=== PATIENT | male | born 1950 ===

== ENCOUNTER 2023-01-18 15:54 | Inpatient (IN) | payer BC, SELFPAY ==
[2023-01-18 18:00] VITALS: BP 140/66; PULSE 87; RESP 18; TEMP 36.7; O2SAT 96
--- NOTE | 2023-01-18 19:15 | PC.NURSE ---
Patient arrived via stretcher. He was transferred to HM/ED from [facility]. Pt is 72 y.o. male who was living in the assisted living facility. Past medical Hx of Dementia, Schizophrenia, Hyperlipidemia, prior alcohol D/o, Bi-polar D/o COPD. He thinks he has a hole in his mouth leaking slime and spits saliva to the bucket. Pt appears calm. Oriented to person, knows the month but not the day of the week or the year. He knows he is in hospital but didn't know the town. VS: 140/66-87-18, T 98.1, O2sat 96% on RA. No SOB or respiratory distress noted. Denies pain. Ambulates with steady gait. Skin check completed and wnl. Patient's daughter Cullen Andre aware of pt's transfer [place] [facility] oriented to the unit. Adjusting to the new place well.
--- NOTE | 2023-01-18 20:47 | HO.PM.IMCN ---
History of Present Illness Data of Consult Service Date: 01/18/23 Requesting physician: Arnaldo Zhao Primary Care Provider: Unknown Physician HPI Reason for consult: medical H&P 72-year-old male history of unspecified dementia, schizophrenia, hyperlipidemia, prior alcohol use disorder, bipolar disorder admitted to Psychiatry from [facility] ED with consult placed to hospitalist service for medical H and P. His only complaint is that ?my mouth is leaking slime?. He is alert and oriented to self and knows he is in the hospital but does not know the name of the hospital. He disoriented to time. He is not much of a historian and does not provide much additional history. While in [facility], vital signs stable. Head CT negative for any acute intracranial abnormality. Hematology studies unremarkable. Renal function normal, electrolyte levels normal. Urine tox screen negative. Urinalysis negative. Review of Systems Review of Systems: Yes all other systems are reviewed and are negative [facility] Medical History Alcohol use disorder in remission Bipolar disorder COPD (chronic obstructive pulmonary disease) Dementia Schizophrenia Social History Advance Directives: No Advance Directives Information Provided: No Meds Allergies Allergy/AdvReac Type Severity Reaction Status Date / Time No Known Allergies Allergy Verified 01/18/23 15:04 Active Medications: Current Medications Acetaminophen (Acetaminophen 325 Mg Tablet) 650 mg PO Q6H PRN PRN Reason: Headache/Pain Mild Scale (1-3) Al Hydroxide/Mg Hydroxide (Magnesium Hydrox/Alum Hydrox 30 Ml Oral.Susp) 30 ml PO Q6H PRN PRN Reason: Heartburn/Nausea Albuterol Sulfate (Albuterol Sulfate 90 Mcg 8 Gm Inhaler) 1 puff INHALE RQ4H PRN PRN Reason: wheeze Atorvastatin Calcium (Atorvastatin Calcium 40 Mg Tablet) 40 mg PO BEDTIME JESSI Donepezil HCl (Donepezil Hcl 10 Mg Tablet) 10 mg PO BEDTIME JESSI Fluticasone/Vilanterol (Fluticasone/Vilanterol 100/25 Blst.W.Dev) 1 puff INHALE RDAILY JESSI Hydroxyzine HCl (Hydroxyzine Hcl 25 Mg Tablet) 25 mg PO Q6H PRN PRN Reason: Anxiety Lamotrigine (Lamotrigine 100 Mg Tablet) 100 mg PO BID JESSI Magnesium Hydroxide (Milk Of Magnesia 30 Ml Oral.Susp) 30 ml PO DAILY PRN PRN Reason: Constipation Quetiapine Fumarate (Quetiapine Fumarate 25 Mg Tablet) 75 mg PO BID JESSI Trazodone HCl (Trazodone Hcl 50 Mg Tablet) 50 mg PO BEDTIME MRX1 PRN PRN Reason: Insomnia Home Medications Medication Instructions Recorded Confirmed Last Taken Type albuterol sulfate 90 mcg/actuation 90 puff inhalation 6XD PRN COPD 01/18/23 01/18/23 Unknown History aerosol inhaler atorvastatin 40 mg tablet 40 mg PO DAILY 01/18/23 01/18/23 Unknown History donepezil 10 mg tablet 10 mg PO DAILY 01/18/23 01/18/23 Unknown History fluticasone 100 mcg-salmeterol 50 1 ea inhalation BID 01/18/23 01/18/23 Unknown History mcg/dose blistr powdr for inhalation (Advair Diskus) lamotrigine 100 mg tablet 100 mg PO BID 01/18/23 01/18/23 Unknown History quetiapine 150 mg tablet,extended See Rx Instructions .Route .COMPLEX 01/18/23 01/18/23 Unknown History release 24 hr Physical Exam Vital Signs and Narrative: Vital Signs: Last Vital Signs Temp 98.1 F 01/18/23 18:00 Pulse 87 01/18/23 18:00 Resp 18 01/18/23 18:00 BP 140/66 H 01/18/23 18:00 Pulse Ox 96 01/18/23 18:00 O2 Del Method Room Air 01/18/23 18:00 Constitutional - Awake and Alert, No apparent distress Eyes - PERRLA, EOMI Cardiovascular - S1S2, RRR, No edema Respiratory - Normal lung expansion, Normal respiratory effort, No respiratory distress, CTA bilaterally Gastrointestinal - NT / ND; +BS; No rebound or guarding Extremities - no calf tenderness bilaterally, no swelling Musculoskeletal - Normal inspection, normal ROM Skin - Warm/Dry Neurological - Alert & oriented x2, CN II-XII in tact, 5/5 strength BUE and BLE Psychological - Appropriate affect Assessment and Plan (1) Routine medical exam: Status: Acute Plan 72-year-old male history of unspecified dementia, schizophrenia, hyperlipidemia, prior alcohol use disorder, bipolar disorder admitted to Psychiatry from [facility] ED with consult placed to hospitalist service for medical H and P. #Mood disorder/psychosis -plan per psychiatry #COPD -no acute exacerbation -continue home maintenance inhalers, albuterol p.r.n. # hyperlipidemia -continue statin # unspecified dementia -continue donepezil Thank you for allowing me to participate in this consult. Signing off at this time. Please do not hesitate to call for further questions. Time Spent With Patient Time: Total time managing care of this patient today ____ minutes.
[2023-01-18] MEDS: Atorvastatin Calcium 40 MG TABLET PO (21:18)
[2023-01-18] MEDS: QUEtiapine Fumarate 25 MG TABLET 75 MG PO (21:18)
[2023-01-18] MEDS: traZODone HCL 50 MG TABLET PO (21:20)
[2023-01-18] MEDS: Donepezil HCl 10 MG TABLET PO (21:20)
[2023-01-18] MEDS: lamoTRIgine 100 MG TABLET PO (21:20)
[2023-01-19 08:41] LABS: Alanine Aminotransferase 21 U/L (0-40); Albumin Level 4.6 g/dL (3.5-5.0); Alkaline Phosphatase 80 U/L (39-117); Anion Gap 11 (12-20); Aspartate Amino Transferase 18 U/L (5-37); Bilirubin Total 0.5 mg/dL (0.0-1.0); Blood Urea Nitrogen 15 mg/dL (9-16); Calcium 9.8 mg/dL (8.4-10.2); Carbon Dioxide 26 mmol/L (22-29); Chloride 107 mmol/L (96-108); Cholesterol 156 mg/dL (<200); Estimated Glomerular Filt Rate > 60; Glucose Fasting 103 mg/dL (60-99); HDL Cholesterol 60 mg/dL (>40); LDL Cholesterol Calculated 88 mg/dL (<100); Potassium 4.1 mmol/L (3.3-5.1); Sodium 140 mmol/L (135-145); Total Protein 7.3 g/dL (6.5-8.0); Triglycerides 44 mg/dL (<150)
[2023-01-19 09:00] VITALS: BP 138/68; PULSE 91; RESP 16; TEMP 36.8; O2SAT 97
[2023-01-19] MEDS: QUEtiapine Fumarate 25 MG TABLET 75 MG PO ×2 (09:01→20:49)
[2023-01-19] MEDS: lamoTRIgine 100 MG TABLET PO ×2 (09:01→20:49)
[2023-01-19] MEDS: Fluticasone/Vilanterol 100/25 BLST.W.DEV 1 PUFF INHALE (09:38)
--- NOTE | 2023-01-19 12:49 | HO.PSYADMNOT ---
HPI Date of Service: 01/19/23 Chief Complaint: BIPOLAR DISORDER Sources of Information: patient interviewed, chart reviewed and crisis/core team assessment reviewed HPI Subjective Notes: Santiago Warning and Conditional Voluntary Narrative: The patient is a 72-year-old male, resident of a senior care facility with a past history of alcohol use disorder and probably any other major psychiatric condition, who was referred from the emergency room of [facility] since he complained of psychotic symptoms elicited by the day elusive thought that he has a hole in his mouth and he has other somatic complaints and related. According to the crisis assessment, the patient had being more confused, with paranoia and disorganized behavior. His daughter, who is a physician and emergency room in [place], reported that he had a past history of alcohol use disorder probably his suffer from schizophrenia or bipolar. On interview, the patient was a very poor historian he was pleasant cooperative but extremely confused, he was able to be redirected regarding his orientation on place and time. He stated that he has a hole in his mouth and he needs to be treated. He adamantly denies active suicidal or homicidal thoughts and he denies auditory or visual hallucinations. Even though, the patient needed some help with his ADL in the unit as per nursing report. The patient is a very poor historian so will try to gather more collateral information. He was able to sign a conditional voluntary but his understanding of the santiago warning was probably not 100% optima. Past Psychiatric History: Unclear diagnosis, he used to have alcohol use disorder and probably he had bipolar or schizophrenia as per Medical Evaluation Reviewed: Yes [facility] Medical History (Updated 01/19/23 @ 12:56 by Arnaldo Zhao) Alcohol use disorder in remission Bipolar disorder COPD (chronic obstructive pulmonary disease) Dementia Schizophrenia Family History: Denies Social History: Current resident of [facility] memory care unit Substance History: Past history of alcohol use disorder Trauma History: Unknown Diagnostics Vital Signs (24Hr): Vital Signs - 24 hr 01/18/23 18:00 01/19/23 09:00 Temperature 98.1 F 98.2 F Pulse Rate 87 91 Respiratory Rate 18 16 Blood Pressure 140/66 H 138/68 Pulse Oximetry 96 97 Oxygen Delivery Method Room Air Room Air Labs 01/19/23 08:04 Labs: Laboratory Results - last 48 hr 01/19/23 08:04 Sodium 140 Potassium 4.1 Chloride 107 Carbon Dioxide 26 Anion Gap 11 L BUN 15 Creatinine 0.85 Estim Creat Clear Calc TNP Estimated GFR > 60 Fasting Glucose 103 H Calcium 9.8 Total Bilirubin 0.5 AST 18 ALT 21 Alkaline Phosphatase 80 Total Protein 7.3 Albumin 4.6 Triglycerides 44 Cholesterol 156 LDL Cholesterol, Calc 88 HDL Cholesterol 60 Meds/Allergies Meds Home Medications Medication Instructions Recorded Confirmed Type albuterol sulfate 90 mcg/actuation 90 puff inhalation 6XD PRN COPD 01/18/23 01/18/23 History aerosol inhaler atorvastatin 40 mg tablet 40 mg PO DAILY 01/18/23 01/18/23 History donepezil 10 mg tablet 10 mg PO DAILY 01/18/23 01/18/23 History fluticasone 100 mcg-salmeterol 50 1 ea inhalation BID 01/18/23 01/18/23 History mcg/dose blistr powdr for inhalation (Advair Diskus) lamotrigine 100 mg tablet 100 mg PO BID 01/18/23 01/18/23 History quetiapine 150 mg tablet,extended See Rx Instructions .Route .COMPLEX 01/18/23 01/18/23 History release 24 hr Allergies Allergies Allergy/AdvReac Type Severity Reaction Status Date / Time No Known Allergies Allergy Verified 01/18/23 15:04 Mental Status Exam Mental Status Exam Patient Appearance: Well Grooomed and Appropriate Patient Orientation: Person and Situation Level of Consciousness: Awake and Appropriate Patient Behavior: Guarded and Passive Mood Description: Calm Affect Description: Constricted Patient Cognition Impaired: Yes Ability to Follow Directions: Good Speech Pattern: Clear Hallucinations: None Delusions: Paranoid Ideation and Ideas of Reference Thought Process: Illogical, Distracted and Slowed Thinking Thought Content: positive for Anderson and positive for Poverty of Content Judgement: Fair Assessment & Plan Assessment & Plan (1) Psychosis: Status: Acute Code(s): F29 - Unspecified psychosis not due to a substance or known physiological condition (2) Alcohol use disorder: Status: Acute Code(s): F10.90 - Alcohol use, unspecified, uncomplicated Plan The patient is an elderly male with a past history of dementia, alcohol use disorder, most likely bipolar or psychosis admitted for psychotic symptoms and disorganized behavior with somatic complaints. The patient was transferred from his assisted living facility to the emergency room of [facility] due to his delusional thinking. The patient was a very poor historian. Plan 1. Gather collateral information. 2. Continue with regular medications started at [facility]. 3. Referral to hospitalist for medical clearance. 4. 5 minutes checks. 5. Reassessment with results. Patient educated on: diagnosis Guardian/Caregiver educated on: therapeutic strategies Informed Consent: further education needed Reason for continued inpatient stay Substantial Risk for: inability to function, rapid decompensation and med/psych decompensation Statement Statement: I have reviewed the history and physical and performed a pertinent examination on my patient. No changes have occurred unless specified. If the History and Physical was not performed prior to admission, the Hospitalist's service will be consulted for completing the admission physical. Time Spent With Patient Time: Total time managing care of this patient today _45___ minutes.
[2023-01-19 18:00] VITALS: BP 124/70; PULSE 80; RESP 18; TEMP 36.7; O2SAT 97
[2023-01-19] MEDS: Atorvastatin Calcium 40 MG TABLET PO (20:48)
[2023-01-19] MEDS: Donepezil HCl 10 MG TABLET PO (20:49)
[2023-01-20 06:00] VITALS: BP 122/70; PULSE 72; RESP 18; TEMP 36.6; O2SAT 97
[2023-01-20] MEDS: QUEtiapine Fumarate 25 MG TABLET 75 MG PO ×2 (08:48→20:55)
[2023-01-20] MEDS: lamoTRIgine 100 MG TABLET PO ×2 (08:48→20:57)
[2023-01-20] MEDS: Fluticasone/Vilanterol 100/25 BLST.W.DEV 1 PUFF INHALE (08:49)
--- NOTE | 2023-01-20 11:05 | HO.PSYCHPN ---
Subjective Subjective Date of Service: 01/20/23 Reason For Visit: BIPOLAR DISORDER Subjective Notes: Conditional Voluntary Interim History: The nursing staff reported the patient has been pleasant, participating a few groups, wandering the unit. He has complained that he has a hold on his mouth. On exam, we realized that he has small ulcer on his mouth. Yesterday the hospice social worker contact her daughter who is a physician reported that he was diagnosed with bipolar but he never received treatment. He had been admitted twice in 1 0 port unit he got Clozaril and he accidentally overdose and end up on ICU most likely with a TBI. The 2nd admission was due to get a Erlinda. Apparently the best treatment for he had been Lamictal and Seroquel. He carries a diagnosis of dementia since 2016. On interview the patient remains perseverative regarding the ruiz on his mouth, no aggressive behavior. Mental Status Exam Mental Status Exam Patient Appearance: Appropriate Level of Consciousness: Awake Patient Behavior: Guarded Mood Description: Calm Affect Description: Constricted Patient Cognition Impaired: Yes Ability to Follow Directions: Fair Speech Pattern: Clear Hallucinations: None Delusions: Ideas of Reference and Bizarre Thought Process: Illogical and Evasive Thought Content: positive for [place] and positive for Poverty of Content Judgement: Poor Diagnostics Vital Signs (24Hr): Vital Signs - 24 hr 01/19/23 18:00 01/20/23 06:00 Temperature 98.1 F 97.8 F Pulse Rate 80 72 Respiratory Rate 18 18 Blood Pressure 124/70 122/70 Pulse Oximetry 97 97 Oxygen Delivery Method Room Air Room Air Labs 01/19/23 08:04 Labs: Laboratory Results - last 48 hr 01/19/23 08:04 Sodium 140 Potassium 4.1 Chloride 107 Carbon Dioxide 26 Anion Gap 11 L BUN 15 Creatinine 0.85 Estim Creat Clear Calc TNP Estimated GFR > 60 Fasting Glucose 103 H Calcium 9.8 Total Bilirubin 0.5 AST 18 ALT 21 Alkaline Phosphatase 80 Total Protein 7.3 Albumin 4.6 Triglycerides 44 Cholesterol 156 LDL Cholesterol, Calc 88 HDL Cholesterol 60 Medications Medications Current Medications Acetaminophen (Acetaminophen 325 Mg Tablet) 650 mg PO Q6H PRN PRN Reason: Headache/Pain Mild Scale (1-3) Al Hydroxide/Mg Hydroxide (Magnesium Hydrox/Alum Hydrox 30 Ml Oral.Susp) 30 ml PO Q6H PRN PRN Reason: Heartburn/Nausea Albuterol Sulfate (Albuterol Sulfate 90 Mcg 8 Gm Inhaler) 1 puff INHALE RQ4H PRN PRN Reason: wheeze Atorvastatin Calcium (Atorvastatin Calcium 40 Mg Tablet) 40 mg PO BEDTIME [facility] Last Admin: 01/19/23 20:48 Dose: 40 mg Donepezil HCl (Donepezil Hcl 10 Mg Tablet) 10 mg PO BEDTIME [facility] Last Admin: 01/19/23 20:49 Dose: 10 mg Fluticasone/Vilanterol (Fluticasone/Vilanterol 100/25 Blst.W.Dev) 1 puff INHALE RDAILY [facility] Last Admin: 01/20/23 08:49 Dose: 1 puff Hydroxyzine HCl (Hydroxyzine Hcl 25 Mg Tablet) 25 mg PO Q6H PRN PRN Reason: Anxiety Lamotrigine (Lamotrigine 100 Mg Tablet) 100 mg PO BID [facility] Last Admin: 01/20/23 08:48 Dose: 100 mg Lidocaine HCl (Lidocaine Hcl 2 % Jelly 5 Ml Tube) 1 appl TOPICAL TID PRN; Protocol PRN Reason: pain oral ulcer Magnesium Hydroxide (Milk Of Magnesia 30 Ml Oral.Susp) 30 ml PO DAILY PRN PRN Reason: Constipation Quetiapine Fumarate (Quetiapine Fumarate 25 Mg Tablet) 75 mg PO BID [facility] Last Admin: 01/20/23 08:48 Dose: 75 mg Trazodone HCl (Trazodone Hcl 50 Mg Tablet) 50 mg PO BEDTIME MRX1 PRN PRN Reason: Insomnia Last Admin: 01/18/23 21:20 Dose: 50 mg Allergies Allergies Allergy/AdvReac Type Severity Reaction Status Date / Time No Known Allergies Allergy Verified 01/18/23 15:04 Assessment & Plan Assessment & Plan (1) Psychosis: Status: Acute Code(s): F29 - Unspecified psychosis not due to a substance or known physiological condition (2) Alcohol use disorder: Status: Acute Code(s): F10.90 - Alcohol use, unspecified, uncomplicated Plan The patient is an elderly male with a past history of dementia, alcohol use disorder, most likely bipolar or psychosis admitted for psychotic symptoms and disorganized behavior with somatic complaints. The patient was transferred from his assisted living facility to the emergency room of [facility] due to his delusional thinking. The patient was a very poor historian. Plan 1. Gather collateral information. 2. Continue with regular medications started at [facility]. 3. Referral to hospitalist for medical clearance. 4. 5 minutes checks. 5. Reassessment with results. Reason for continued inpatient stay Substantial Risk for: inability to function, rapid decompensation and med/psych decompensation Time Spent With Patient Time: Total time managing care of this patient today _20___ minutes.
[2023-01-20] MEDS: Lidocaine HCl 2 % Jelly 5 ML TUBE 1 APPL TOPICAL ×2 (14:35→20:57)
[2023-01-20 20:00] VITALS: BP 130/63; PULSE 77; RESP 20; TEMP 36.2; O2SAT 95
[2023-01-20] MEDS: Atorvastatin Calcium 40 MG TABLET PO (20:55)
[2023-01-20] MEDS: Donepezil HCl 10 MG TABLET PO (20:57)
[2023-01-21] MEDS: Lidocaine HCl 2 % Jelly 5 ML TUBE 1 APPL TOPICAL ×3 (03:44→18:51)
[2023-01-21 07:41] VITALS: BP 141/71; PULSE 71; RESP 18; TEMP 36.1
[2023-01-21] MEDS: Fluticasone/Vilanterol 100/25 BLST.W.DEV 1 PUFF INHALE (08:33)
[2023-01-21] MEDS: QUEtiapine Fumarate 25 MG TABLET 75 MG PO ×2 (08:33→20:01)
[2023-01-21] MEDS: lamoTRIgine 100 MG TABLET PO ×2 (08:33→20:01)
--- NOTE | 2023-01-21 11:36 | P.PNPSI_ITS ---
Subjective Subjective Date of Service: 01/21/23 Reason For Visit: BIPOLAR DISORDER Subjective Notes: Conditional Voluntary Interim History: The nursing staff reported the patient had been pleasant cooperative, pacing in the hallway, easily redirectable. He slept all well last night. Today the occupational therapist will do cognitive testing. The home health care social worker reported will have a soon meeting today with her daughter. On interview the patient remains delusional stating that he has a hole on his mouth, explain that he has a little ulcer on his cheek and that is why he feels uncomfortable. Still confused and delusional. Mental Status Exam Mental Status Exam Patient Appearance: Unkempt Patient Orientation: Person Level of Consciousness: Awake and Restless Patient Behavior: Guarded and Passive Mood Description: Withdrawn Affect Description: Constricted Patient Cognition Impaired: Yes Ability to Follow Directions: Fair Speech Pattern: Clear Hallucinations: None Delusions: Paranoid Ideation and Ideas of Reference Thought Process: Illogical, Distracted and Slowed Thinking Thought Content: positive for [place] and positive for Poverty of Content Judgement: Poor Diagnostics Vital Signs (24Hr): Vital Signs - 24 hr 01/20/23 20:00 01/21/23 07:41 Temperature 97.2 F 97.0 F Pulse Rate 77 71 Respiratory Rate 20 18 Blood Pressure 130/63 141/71 H Pulse Oximetry 95 Oxygen Delivery Method Room Air Room Air Labs 01/19/23 08:04 Medications Medications Current Medications Acetaminophen (Acetaminophen 325 Mg Tablet) 650 mg PO Q6H PRN PRN Reason: Headache/Pain Mild Scale (1-3) Al Hydroxide/Mg Hydroxide (Magnesium Hydrox/Alum Hydrox 30 Ml Oral.Susp) 30 ml PO Q6H PRN PRN Reason: Heartburn/Nausea Albuterol Sulfate (Albuterol Sulfate 90 Mcg 8 Gm Inhaler) 1 puff INHALE RQ4H PRN PRN Reason: wheeze Atorvastatin Calcium (Atorvastatin Calcium 40 Mg Tablet) 40 mg PO BEDTIME JESSI Last Admin: 01/20/23 20:55 Dose: 40 mg Donepezil HCl (Donepezil Hcl 10 Mg Tablet) 10 mg PO BEDTIME [facility]ESSI Last Admin: 01/20/23 20:57 Dose: 10 mg Fluticasone/Vilanterol (Fluticasone/Vilanterol 100/25 Blst.W.Dev) 1 puff INHALE RDAILY [facility] Last Admin: 01/21/23 08:33 Dose: 1 puff Hydroxyzine HCl (Hydroxyzine Hcl 25 Mg Tablet) 25 mg PO Q6H PRN PRN Reason: Anxiety Lamotrigine (Lamotrigine 100 Mg Tablet) 100 mg PO BID [facility] Last Admin: 01/21/23 08:33 Dose: 100 mg Lidocaine HCl (Lidocaine Hcl 2 % Jelly 5 Ml Tube) 1 appl TOPICAL TID PRN; Protocol PRN Reason: pain oral ulcer Last Admin: 01/21/23 03:44 Dose: 1 appl Magnesium Hydroxide (Milk Of Magnesia 30 Ml Oral.Susp) 30 ml PO DAILY PRN PRN Reason: Constipation Quetiapine Fumarate (Quetiapine Fumarate 25 Mg Tablet) 75 mg PO BID [facility] Last Admin: 01/21/23 08:33 Dose: 75 mg Trazodone HCl (Trazodone Hcl 50 Mg Tablet) 50 mg PO BEDTIME MRX1 PRN PRN Reason: Insomnia Last Admin: 01/18/23 21:20 Dose: 50 mg Allergies Allergies Allergy/AdvReac Type Severity Reaction Status Date / Time No Known Allergies Allergy Verified 01/18/23 15:04 Assessment & Plan Assessment & Plan (1) Psychosis: Status: Acute Code(s): F29 - Unspecified psychosis not due to a substance or known physiological condition (2) Alcohol use disorder: Status: Acute Code(s): F10.90 - Alcohol use, unspecified, uncomplicated Plan The patient is an elderly male with a past history of dementia, alcohol use disorder, most likely bipolar or psychosis admitted for psychotic symptoms and disorganized behavior with somatic complaints. The patient was transferred from his assisted living facility to the emergency room of [facility] due to his delusional thinking. The patient was a very poor hi storian. Plan 1. Gather collateral information. 2. Continue with regular medications started at [facility]. 3. Referral to hospitalist for medical clearance. 4. 5 minutes checks. 5. Reassessment with results. 6. Family meeting today Reason for continued inpatient stay Substantial Risk for: inability to function, rapid decompensation and med/psych decompensation Time Spent With Patient Time: Total time managing care of this patient today __20__ minutes.
[2023-01-21 18:00] VITALS: BP 148/64; PULSE 60; RESP 18; TEMP 36.9; O2SAT 95
[2023-01-21] MEDS: Acetaminophen 325 MG TABLET 650 MG PO (20:01)
[2023-01-21] MEDS: Donepezil HCl 10 MG TABLET PO (20:01)
[2023-01-21] MEDS: Atorvastatin Calcium 40 MG TABLET PO (20:01)
[2023-01-21] MEDS: traZODone HCL 50 MG TABLET PO (20:02)
[2023-01-22] MEDS: Lidocaine HCl 2 % Jelly 5 ML TUBE 1 APPL TOPICAL ×5 (05:46→20:30)
[2023-01-22 08:00] VITALS: BP 130/70; PULSE 72; RESP 18; TEMP 36.7; O2SAT 97
[2023-01-22] MEDS: Fluticasone/Vilanterol 100/25 BLST.W.DEV 1 PUFF INHALE (08:05)
[2023-01-22] MEDS: lamoTRIgine 100 MG TABLET PO ×2 (08:06→20:13)
[2023-01-22] MEDS: QUEtiapine Fumarate 25 MG TABLET 75 MG PO ×2 (08:06→20:12)
--- NOTE | 2023-01-22 17:48 | HO.PSYCHPN ---
Subjective Subjective Date of Service: 01/22/23 Reason For Visit: BIPOLAR DISORDER Interim History: met with patient. Discussed with Nursing. Reports lidocaine gel has been very helpful for mouth discomfort. Pleasant. Accepting treatment. Did report sleeping was difficult last night as his roommate was loud, which is accurate. Feels positive regarding treatment here and staff. Aware it is December, got the day of the week wrong and believed it was 2039. Denies feeling depressed suicidal or agitated. Medication Compliance: Yes Side effects from medications: No Attending Groups: Yes Review of Systems Acute medical concerns: No Review of Systems Review of Systems Yes all other systems are reviewed and are negative Mental Status Exam Mental Status Exam Narrative: Pleasant. Engaged. Fairly presented. Cognitively impaired. Oriented to place and month but not year or day. Denied depression SI HI. Denied feeling paranoid or hallucinating. Insight and judgment is limited Diagnostics Vital Signs (24Hr): Vital Signs - 24 hr 01/21/23 18:00 01/22/23 08:00 Temperature 98.4 F 98.1 F Pulse Rate 60 72 Respiratory Rate 18 18 Blood Pressure 148/64 H 130/70 Pulse Oximetry 95 97 Oxygen Delivery Method Room Air Room Air Labs 01/19/23 08:04 Medications Medications Current Medications Acetaminophen (Acetaminophen 325 Mg Tablet) 650 mg PO Q6H PRN PRN Reason: Headache/Pain Mild Scale (1-3) Last Admin: 01/21/23 20:01 Dose: 650 mg Al Hydroxide/Mg Hydroxide (Magnesium Hydrox/Alum Hydrox 30 Ml Oral.Susp) 30 ml PO Q6H PRN PRN Reason: Heartburn/Nausea Albuterol Sulfate (Albuterol Sulfate 90 Mcg 8 Gm Inhaler) 1 puff INHALE RQ4H PRN PRN Reason: wheeze Atorvastatin Calcium (Atorvastatin Calcium 40 Mg Tablet) 40 mg PO BEDTIME [facility] Last Admin: 01/21/23 20:01 Dose: 40 mg Donepezil HCl (Donepezil Hcl 10 Mg Tablet) 10 mg PO BEDTIME [facility] Last Admin: 01/21/23 20:01 Dose: 10 mg Fluticasone/Vilanterol (Fluticasone/Vilanterol 100/25 Blst.W.Dev) 1 puff INHALE RDAILY [facility] Last Admin: 01/22/23 08:05 Dose: 1 puff Hydroxyzine HCl (Hydroxyzine Hcl 25 Mg Tablet) 25 mg PO Q6H PRN PRN Reason: Anxiety Lamotrigine (Lamotrigine 100 Mg Tablet) 100 mg PO BID [facility] Last Admin: 01/22/23 08:06 Dose: 100 mg Lidocaine HCl (Lidocaine Hcl 2 % Jelly 5 Ml Tube) 1 appl TOPICAL 6XD [facility]; Protocol Last Admin: 01/22/23 15:29 Dose: 1 appl Magnesium Hydroxide (Milk Of Magnesia 30 Ml Oral.Susp) 30 ml PO DAILY PRN PRN Reason: Constipation Quetiapine Fumarate (Quetiapine Fumarate 25 Mg Tablet) 75 mg PO BID [facility] Last Admin: 01/22/23 08:06 Dose: 75 mg Trazodone HCl (Trazodone Hcl 50 Mg Tablet) 50 mg PO BEDTIME MRX1 PRN PRN Reason: Insomnia Last Admin: 01/21/23 20:02 Dose: 50 mg Allergies Allergies Allergy/AdvReac Type Severity Reaction Status Date / Time No Known Allergies Allergy Verified 01/18/23 15:04 Assessment & Plan Assessment & Plan (1) Psychosis: Status: Acute Code(s): F29 - Unspecified psychosis not due to a substance or known physiological condition (2) Alcohol use disorder: Status: Acute Code(s): F10.90 - Alcohol use, unspecified, uncomplicated Plan The patient is an elderly male with a past history of dementia, alcohol use disorder, most likely bipolar or psychosis admitted for psychotic symptoms and disorganized behavior with somatic complaints. The patient was transferred from his assisted living facility to the emergency room of [facility] due to his delusional thinking. The patient was a very poor historian. Plan 1. Gather collateral information. 2. Continue with regular medications started at [facility]. 3. Referral to hospitalist for medical clearance. 4. 5 minutes checks. 5. Reassessment with results. 6. Family meeting today 01/22/2023: No changes to current treatment plan Reason for continued inpatient stay Substantial Risk for: inability to function Time Spent With Patient Time: Total time managing care of this patient today ____ minutes.
[2023-01-22 18:00] VITALS: BP 147/76; PULSE 76; RESP 18; TEMP 36; O2SAT 98
[2023-01-22] MEDS: Atorvastatin Calcium 40 MG TABLET PO (20:12)
[2023-01-22] MEDS: Donepezil HCl 10 MG TABLET PO (20:12)
[2023-01-22] MEDS: Acetaminophen 325 MG TABLET 650 MG PO (20:14)
[2023-01-23] MEDS: hydrOXYzine HCL 25 MG TABLET PO ×2 (02:45→20:56)
[2023-01-23] MEDS: traZODone HCL 50 MG TABLET PO ×2 (02:45→20:54)
[2023-01-23 08:00] VITALS: BP 142/77; PULSE 87; RESP 18; TEMP 36.3; O2SAT 98
[2023-01-23] MEDS: QUEtiapine Fumarate 25 MG TABLET 75 MG PO ×2 (08:57→20:55)
[2023-01-23] MEDS: lamoTRIgine 100 MG TABLET PO ×2 (08:57→20:55)
[2023-01-23] MEDS: Acetaminophen 325 MG TABLET 650 MG PO (08:57)
[2023-01-23] MEDS: Fluticasone/Vilanterol 100/25 BLST.W.DEV 1 PUFF INHALE (08:57)
[2023-01-23] MEDS: Lidocaine HCl 2 % Jelly 5 ML TUBE 1 APPL TOPICAL (09:00)
[2023-01-23] MEDS: Milk of Magnesia 30 ML ORAL.SUSP PO (09:01)
[2023-01-23] MEDS: Benzocaine 20 % Oral Gel 9 GM TUBE 1 APPL MUCOUS MEM ×3 (12:04→20:57)
--- NOTE | 2023-01-23 12:18 | P.PNPSI_ITS ---
Subjective Subjective Date of Service: 01/23/23 Reason For Visit: BIPOLAR DISORDER Interim History: Met with patient. Discussed with Nursing. Continues to present as pleasant and engaged. Sleep broekd as room mate loud. Lidocaine gel has been very helpful for mouth discomfort. Will add anbesol as lidocaine will be out of stock. Feels positive regarding treatment here and staff. Denies feeling depressed suicidal or agitated. Medication Compliance: Yes Side effects from medications: No Attending Groups: Yes Review of Systems Acute medical concerns: No Review of Systems Review of Systems mouth discomfort lidocaine helpful Yes all other systems are reviewed and are negative Mental Status Exam Mental Status Exam Narrative: Pleasant. Engaged. Fairly presented. Cognitively impaired. Oriented to place and month but not year or day. Denied depression SI HI. Denied feeling paranoid or hallucinating. Insight and judgment is limited Diagnostics Vital Signs (24Hr): Vital Signs - 24 hr 01/22/23 18:00 01/23/23 08:00 Temperature 96.8 F 97.4 F Pulse Rate 76 87 Respiratory Rate 18 18 Blood Pressure 147/76 H 142/77 H Pulse Oximetry 98 98 Oxygen Delivery Method Room Air Room Air Labs 01/19/23 08:04 Medications Medications Current Medications Acetaminophen (Acetaminophen 325 Mg Tablet) 650 mg PO Q6H PRN PRN Reason: Headache/Pain Mild Scale (1-3) Last Admin: 01/23/23 08:57 Dose: 650 mg Al Hydroxide/Mg Hydroxide (Magnesium Hydrox/Alum Hydrox 30 Ml Oral.Susp) 30 ml PO Q6H PRN PRN Reason: Heartburn/Nausea Albuterol Sulfate (Albuterol Sulfate 90 Mcg 8 Gm Inhaler) 1 puff INHALE RQ4H PRN PRN Reason: wheeze Atorvastatin Calcium (Atorvastatin Calcium 40 Mg Tablet) 40 mg PO BEDTIME [facility] Last Admin: 01/22/23 20:12 Dose: 40 mg Benzocaine (Benzocaine 20 % Oral Gel 9 Gm Tube) 1 appl MUCOUS MEM QID [facility]; Protocol Last Admin: 01/23/23 12:04 Dose: 1 appl Donepezil HCl (Donepezil Hcl 10 Mg Tablet) 10 mg PO BEDTIME [facility] Last Admin: 01/22/23 20:12 Dose: 10 mg Fluticasone/Vilanterol (Fluticasone/Vilanterol 100/25 Blst.W.Dev) 1 puff INHALE RDAILY [facility] Last Admin: 01/23/23 08:57 Dose: 1 puff Hydroxyzine HCl (Hydroxyzine Hcl 25 Mg Tablet) 25 mg PO Q6H PRN PRN Reason: Anxiety Last Admin: 01/23/23 02:45 Dose: 25 mg Lamotrigine (Lamotrigine 100 Mg Tablet) 100 mg PO BID [facility] Last Admin: 01/23/23 08:57 Dose: 100 mg Magnesium Hydroxide (Milk Of Magnesia 30 Ml Oral.Susp) 30 ml PO DAILY PRN PRN Reason: Constipation Last Admin: 01/23/23 09:01 Dose: 30 ml Quetiapine Fumarate (Quetiapine Fumarate 25 Mg Tablet) 75 mg PO BID [facility] Last Admin: 01/23/23 08:57 Dose: 75 mg Trazodone HCl (Trazodone Hcl 50 Mg Tablet) 50 mg PO BEDTIME MRX1 PRN PRN Reason: Insomnia Last Admin: 01/23/23 02:45 Dose: 50 mg Allergies Allergies Allergy/AdvReac Type Severity Reaction Status Date / Time No Known Allergies Allergy Verified 01/18/23 15:04 Assessment & Plan Assessment & Plan (1) Psychosis: Status: Acute Code(s): F29 - Unspecified psychosis not due to a substance or known physiological condition (2) Alcohol use disorder: Status: Acute Code(s): F10.90 - Alcohol use, unspecified, uncomplicated Plan The patient is an elderly male with a past history of dementia, alcohol use disorder, most likely bipolar or psychosis admitted for psychotic symptoms and disorganized behavior with somatic complaints. The patient was transferred from his assisted living facility to the emergency room of [facility] due to his delusional thinking. The patient was a very poor historian. Plan 1. Gather collateral information. 2. Continue with regular medications started at [facility]. 3. Referral to hospitalist for medical clearance. 4. 5 minutes checks. 5. Reassessment with results. 6. Family meeting today 01/23/2023: No changes to current treatment plan Reason for continued inpatient stay Substantial Risk for: inability to function Time Spent With Patient Time: Total time managing care of this patient today ____ minutes.
[2023-01-23 18:00] VITALS: BP 136/65; PULSE 64; RESP 16; TEMP 36; O2SAT 98
[2023-01-23] MEDS: Donepezil HCl 10 MG TABLET PO (20:55)
[2023-01-23] MEDS: Atorvastatin Calcium 40 MG TABLET PO (20:55)
[2023-01-24] MEDS: Benzocaine 20 % Oral Gel 9 GM TUBE 1 APPL MUCOUS MEM ×4 (03:39→17:18)
[2023-01-24 08:00] VITALS: BP 115/68; PULSE 85; RESP 18; TEMP 36.4; O2SAT 97
[2023-01-24] MEDS: lamoTRIgine 100 MG TABLET PO ×2 (08:11→21:37)
[2023-01-24] MEDS: QUEtiapine Fumarate 25 MG TABLET 75 MG PO ×2 (08:11→21:37)
[2023-01-24] MEDS: Fluticasone/Vilanterol 100/25 BLST.W.DEV 1 PUFF INHALE (08:31)
[2023-01-24 18:00] VITALS: BP 123/85; PULSE 98; RESP 16; TEMP 36.4; O2SAT 96
[2023-01-24] MEDS: Atorvastatin Calcium 40 MG TABLET PO (21:37)
[2023-01-24] MEDS: traZODone HCL 50 MG TABLET PO (21:37)
[2023-01-24] MEDS: Donepezil HCl 10 MG TABLET PO (21:37)
[2023-01-25] MEDS: Benzocaine 20 % Oral Gel 9 GM TUBE 1 APPL MUCOUS MEM ×4 (06:23→21:30)
[2023-01-25 08:30] VITALS: BP 108/60; PULSE 81; RESP 18; TEMP 36.6; O2SAT 98
[2023-01-25] MEDS: Fluticasone/Vilanterol 100/25 BLST.W.DEV 1 PUFF INHALE (08:30)
[2023-01-25] MEDS: lamoTRIgine 100 MG TABLET PO ×2 (08:30→19:35)
[2023-01-25] MEDS: QUEtiapine Fumarate 25 MG TABLET 75 MG PO ×2 (08:30→19:35)
[2023-01-25] MEDS: Milk of Magnesia 30 ML ORAL.SUSP PO (10:31)
--- NOTE | 2023-01-25 16:32 | HO.PSYCHPN ---
Subjective Subjective Date of Service: 01/24/23 Reason For Visit: BIPOLAR DISORDER Subjective Notes: Conditional Voluntary Interim History: Pt denies any significant physical concern. He reports he has not seen dentist but no acute pain at the moment. Pt sleeping through the night. No behavioral concerns. He denies SI/HI. Per nursing, pt sleeping through the night. Review of Systems Review of Systems mouth discomfort lidocaine helpful Yes all other systems are reviewed and are negative and Unobtainable due to mental status Mental Status Exam Mental Status Exam Patient Appearance: Unkempt Patient Orientation: Person Level of Consciousness: Awake and Restless Patient Behavior: Guarded and Passive Mood Description: Withdrawn Affect Description: Constricted Patient Cognition Impaired: Yes Ability to Follow Directions: Fair Speech Pattern: Clear Diagnostics Vital Signs (24Hr): Vital Signs - 24 hr 01/24/23 18:00 01/25/23 08:30 Temperature 97.5 F 97.8 F Pulse Rate 98 81 Respiratory Rate 16 18 Blood Pressure 123/85 108/60 Pulse Oximetry 96 98 Oxygen Delivery Method Room Air Room Air Labs 01/19/23 08:04 Medications Medications Current Medications Acetaminophen (Acetaminophen 325 Mg Tablet) 650 mg PO Q6H PRN PRN Reason: Headache/Pain Mild Scale (1-3) Last Admin: 01/23/23 08:57 Dose: 650 mg Al Hydroxide/Mg Hydroxide (Magnesium Hydrox/Alum Hydrox 30 Ml Oral.Susp) 30 ml PO Q6H PRN PRN Reason: Heartburn/Nausea Albuterol Sulfate (Albuterol Sulfate 90 Mcg 8 Gm Inhaler) 1 puff INHALE RQ4H PRN PRN Reason: wheeze Atorvastatin Calcium (Atorvastatin Calcium 40 Mg Tablet) 40 mg PO BEDTIME [facility] Last Admin: 01/24/23 21:37 Dose: 40 mg Benzocaine (Benzocaine 20 % Oral Gel 9 Gm Tube) 1 appl MUCOUS MEM QID [facility]; Protocol Last Admin: 01/25/23 13:13 Dose: 1 appl Donepezil HCl (Donepezil Hcl 10 Mg Tablet) 10 mg PO BEDTIME [facility] Last Admin: 01/24/23 21:37 Dose: 10 mg Fluticasone/Vilanterol (Fluticasone/Vilanterol 100/25 Blst.W.Dev) 1 puff INHALE RDAILY [facility] Last Admin: 01/25/23 08:30 Dose: 1 puff Hydroxyzine HCl (Hydroxyzine Hcl 25 Mg Tablet) 25 mg PO Q6H PRN PRN Reason: Anxiety Last Admin: 01/23/23 20:56 Dose: 25 mg Lamotrigine (Lamotrigine 100 Mg Tablet) 100 mg PO BID [facility] Last Admin: 01/25/23 08:30 Dose: 100 mg Lidocaine HCl (Lidocaine Hcl 2 % Jelly 5 Ml Tube) 1 appl TOPICAL [facility] PRN; Protocol PRN Reason: mouth pain Magnesium Hydroxide (Milk Of Magnesia 30 Ml Oral.Susp) 30 ml PO DAILY PRN PRN Reason: Constipation Last Admin: 01/25/23 10:31 Dose: 30 ml Quetiapine Fumarate (Quetiapine Fumarate 25 Mg Tablet) 75 mg PO BID [facility] Last Admin: 01/25/23 08:30 Dose: 75 mg Trazodone HCl (Trazodone Hcl 50 Mg Tablet) 50 mg PO BEDTIME MRX1 PRN PRN Reason: Insomnia Last Admin: 01/24/23 21:37 Dose: 50 mg Allergies Allergies Allergy/AdvReac Type Severity Reaction Status Date / Time No Known Allergies Allergy Verified 01/18/23 15:04 Assessment & Plan Assessment & Plan (1) Psychosis: Status: Acute Code(s): F29 - Unspecified psychosis not due to a substance or known physiological condition (2) Alcohol use disorder: Status: Acute Code(s): F10.90 - Alcohol use, unspecified, uncomplicated Plan The patient is an elderly male with a past history of dementia, alcohol use disorder, most likely bipolar or psychosis admitted for psychotic symptoms and disorganized behavior with somatic complaints. The patient was transferred from his assisted living facility to the emergency room of [facility] due to his delusional thinking. The patient was a very poor historian. Plan 1. Gather collateral information. 2. Continue with regular medications started at [facility]. 3. Referral to hospitalist for medical clearance. 4. 5 minutes checks. 5. Reassessment with results. 6. Family meeting today 01/23/2023: No changes to current treatment plan 01/24 continue tx. Reason for continued inpatient stay Substantial Risk for: inability to function Time Spent With Patient Time: Total time managing care of this patient today ____ minutes.
--- NOTE | 2023-01-25 16:32 | HO.PSYCHPN ---
Subjective Subjective Date of Service: 01/25/23 Reason For Visit: BIPOLAR DISORDER Subjective Notes: Conditional Voluntary Interim History: Pt continues to present as pleasant on approach. He denies acute physical concerns. Pt sleeping through the night. No behavioral concerns. He denies SI/HI. Per nursing, pt sleeping through the night. He is scheduled to be discharged tomorrow. Review of Systems Review of Systems mouth discomfort lidocaine helpful Yes all other systems are reviewed and are negative and Unobtainable due to mental status Mental Status Exam Mental Status Exam Narrative: Pleasant. Engaged. Fairly presented. Cognitively impaired. Oriented to place and month but not year or day. Denied depression SI HI. Denied feeling paranoid or hallucinating. Insight and judgment is limited Diagnostics Vital Signs (24Hr): Vital Signs - 24 hr 01/24/23 18:00 01/25/23 08:30 Temperature 97.5 F 97.8 F Pulse Rate 98 81 Respiratory Rate 16 18 Blood Pressure 123/85 108/60 Pulse Oximetry 96 98 Oxygen Delivery Method Room Air Room Air Labs 01/19/23 08:04 Medications Medications Current Medications Acetaminophen (Acetaminophen 325 Mg Tablet) 650 mg PO Q6H PRN PRN Reason: Headache/Pain Mild Scale (1-3) Last Admin: 01/23/23 08:57 Dose: 650 mg Al Hydroxide/Mg Hydroxide (Magnesium Hydrox/Alum Hydrox 30 Ml Oral.Susp) 30 ml PO Q6H PRN PRN Reason: Heartburn/Nausea Albuterol Sulfate (Albuterol Sulfate 90 Mcg 8 Gm Inhaler) 1 puff INHALE RQ4H PRN PRN Reason: wheeze Atorvastatin Calcium (Atorvastatin Calcium 40 Mg Tablet) 40 mg PO BEDTIME [facility] Last Admin: 01/24/23 21:37 Dose: 40 mg Benzocaine (Benzocaine 20 % Oral Gel 9 Gm Tube) 1 appl MUCOUS MEM QID [facility]; Protocol Last Admin: 01/25/23 13:13 Dose: 1 appl Donepezil HCl (Donepezil Hcl 10 Mg Tablet) 10 mg PO BEDTIME [facility] Last Admin: 01/24/23 21:37 Dose: 10 mg Fluticasone/Vilanterol (Fluticasone/Vilanterol 100/25 Blst.W.Dev) 1 puff INHALE RDAILY [facility] Last Admin: 01/25/23 08:30 Dose: 1 puff Hydroxyzine HCl (Hydroxyzine Hcl 25 Mg Tablet) 25 mg PO Q6H PRN PRN Reason: Anxiety Last Admin: 01/23/23 20:56 Dose: 25 mg Lamotrigine (Lamotrigine 100 Mg Tablet) 100 mg PO BID [facility] Last Admin: 01/25/23 08:30 Dose: 100 mg Lidocaine HCl (Lidocaine Hcl 2 % Jelly 5 Ml Tube) 1 appl TOPICAL TID PRN; Protocol PRN Reason: mouth pain Magnesium Hydroxide (Milk Of Magnesia 30 Ml Oral.Susp) 30 ml PO DAILY PRN PRN Reason: Constipation Last Admin: 01/25/23 10:31 Dose: 30 ml Quetiapine Fumarate (Quetiapine Fumarate 25 Mg Tablet) 75 mg PO BID [facility] Last Admin: 01/25/23 08:30 Dose: 75 mg Trazodone HCl (Trazodone Hcl 50 Mg Tablet) 50 mg PO BEDTIME MRX1 PRN PRN Reason: Insomnia Last Admin: 01/24/23 21:37 Dose: 50 mg Allergies Allergies Allergy/AdvReac Type Severity Reaction Status Date / Time No Known Allergies Allergy Verified 01/18/23 15:04 Assessment & Plan Assessment & Plan (1) Psychosis: Status: Acute Code(s): F29 - Unspecified psychosis not due to a substance or known physiological condition (2) Alcohol use disorder: Status: Acute Code(s): F10.90 - Alcohol use, unspecified, uncomplicated Plan The patient is an elderly male with a past history of dementia, alcohol use disorder, most likely bipolar or psychosis admitted for psychotic symptoms and disorganized behavior with somatic complaints. The patient was transferred from his assisted living facility to the emergency room of [facility] due to his delusional thinking. The patient was a very poor historian. Plan 1. Gather collateral information. 2. Continue with regular medications started at [facility]. 3. Referral to hospitalist for medical clearance. 4. 5 minutes checks. 5. Reassessment with results. 6. Family meeting today 01/23/2023: No changes to current treatment plan 01/25 continue tx. plan for dc tomorrow. Reason for continued inpatient stay Substantial Risk for: stable for discharge Time Spent With Patient Time: Total time managing care of this patient today ____ minutes.
[2023-01-25 18:00] VITALS: BP 132/67; PULSE 82; RESP 16; TEMP 36.6; O2SAT 98
[2023-01-25] MEDS: Acetaminophen 325 MG TABLET 650 MG PO (19:35)
[2023-01-25] MEDS: traZODone HCL 50 MG TABLET PO (19:36)
[2023-01-25] MEDS: Donepezil HCl 10 MG TABLET PO (21:30)
[2023-01-25] MEDS: Atorvastatin Calcium 40 MG TABLET PO (21:30)
[2023-01-26] MEDS: Acetaminophen 325 MG TABLET 650 MG PO (01:56)
[2023-01-26] MEDS: traZODone HCL 50 MG TABLET PO (01:56)
[2023-01-26 08:00] VITALS: BP 156/67; PULSE 80; RESP 18; TEMP 36.5; O2SAT 98
[2023-01-26] MEDS: lamoTRIgine 100 MG TABLET PO (08:32)
[2023-01-26] MEDS: QUEtiapine Fumarate 25 MG TABLET 75 MG PO (08:32)
[2023-01-26] MEDS: Albuterol Sulfate 90 MCG 8 GM INHALER 1 PUFF INHALE (08:33)
[2023-01-26] MEDS: Benzocaine 20 % Oral Gel 9 GM TUBE 1 APPL MUCOUS MEM (08:35)
[2023-01-26] MEDS: Fluticasone/Vilanterol 100/25 BLST.W.DEV 1 PUFF INHALE (08:38)
--- NOTE | 2023-01-26 09:29 | PM.PSYDC ---
DS: Providers Provider Date of Service: 01/26/23 Date of admission: 01/18/23 15:54 Date of discharge: 01/26/23 Primary care physician: Unknown Physician Consults: 01/18/23 16:52 Consult to Hospitalist Routine Comment: Consulting Provider: Hospitalist Reason For Exam: Direct admission Attending physician on discharge: Dusty Kraft Discharging clinician: Cathie Forte DS: Diagnosis Discharge Diagnosis (1) Psychosis: Status: Acute (2) Alcohol use disorder: Status: Acute DS: Medications Discharge Medications Home Medications: Home Medications Medication Instructions Recorded Confirmed albuterol sulfate 90 mcg/actuation 90 puff inhalation 6XD PRN COPD 01/18/23 01/18/23 aerosol inhaler atorvastatin 40 mg tablet 40 mg PO DAILY 01/18/23 01/18/23 donepezil 10 mg tablet 10 mg PO DAILY 01/18/23 01/18/23 fluticasone 100 mcg-salmeterol 50 1 ea inhalation BID 01/18/23 01/18/23 mcg/dose blistr powdr for inhalation (Advair Diskus) lamotrigine 100 mg tablet 100 mg PO BID 01/18/23 01/18/23 quetiapine 150 mg tablet,extended See Rx Instructions .Route .COMPLEX 01/18/23 01/18/23 release 24 hr Mental Status Exam Mental Status Exam Narrative: Pt with bright non labile affect. no overt psychosis or delusions. No SI/HI. Pt alert, oriented to place, not month or year. No signs of aggression towards or others. Insight/judgment are poor due to neurocognitive disorder. DS: Summary Hospital Course Hospital Course: The patient is a 72-year-old male, resident of a fdc facility with a past history of alcohol use disorder and probably any other major psychiatric condition, who was referred from the emergency room of [facility] since he complained of psychotic symptoms elicited by the day elusive thought that he has a hole in his mouth and he has other somatic complaints and related.? According to the crisis assessment, the patient had being more confused, with paranoia and disorganized behavior.? His daughter, who is a physician and emergency room in [place], reported that he had a past history of alcohol use disorder probably his suffer from schizophrenia or bipolar. On interview, the patient was a very poor historian he was pleasant cooperative but extremely confused, he was able to be redirected regarding his orientation on place and time.? He stated that he has a hole in his mouth and he needs to be treated.? He adamantly denies active suicidal or homicidal thoughts and he denies auditory or visual hallucinations.? Even though, the patient needed some help with his ADL in the unit as per nursing report. The patient is a very poor historian so will try to gather more collateral information.? He was able to sign a conditional voluntary but his understanding of the rodriguez warning was probably not 100% optima. Past Psychiatric History: Unclear diagnosis, he used to have alcohol use disorder and probably he had bipolar or schizophrenia as per Medical Evaluation Reviewed: Yes HOSPITAL COURSE On the unit, pt was admitted on a CV and placed on 15 minutes checks for safety. Pt presented as pleasant. He continued to report having a hole on his mouth. He did have a mouth ulcer. He was given ambesol for oral pain with good effect. Pt recommended to follow up with dentist. Throughout this admission, pt did not report overt delusional content. He did not appear internally preoccupied. He was found to have difficulties with orientation especially to month and year. He denied SI/HI. He was sleeping well most of the night. He was visible on the unit and did not show any aggression towards self or others. Pt was continued on combination of seroquel and lamictal which have been helpful for him in the past. Plan is for him to return to [facility]. Status at Discharge Cognitive/behavioral status at discharge: Pt pleasant, brigth, non labile. No SI/HI. no overt psychosis or delusions. Pt visible on the unit, social with select peers. There we no incidences of disruptive behaviors nor need for restraints. Functional status at discharge: independent ambulation Overall status at discharge: patient is progressing back to baseline Time Spent with Patient Time attestation: Total time managing care of this patient today ___30_ minutes. Time spent: Greater than 30 minutes Discharge Plan Discharge Anticipated Discharge Date/Time: 01/26/23 09:30 Patient Disposition: Home, Self-Care Discharge Diagnosis: Neurocognitive disorder Bipolar Disorder Referrals: [facility] [Other] - 02/02/23 9:00 am (Your next appointment with Dr Wolf at [facility] is scheduled for 02/02/23 at 9am. ) [facility] [Other] - 01/26/23 11:30 am (Transfer back to assisted living on 01/26/23 at 11:30 and follow up with outpatient providers as scheduled. ) [facility] [Other] - 02/04/23 10:00 am (Your first intake appointment is with DOUGLAS Haywood and then you will have medication visit scheduled. ) Discharge Medications: New atorvastatin 40 mg Tablet 40 mg PO BEDTIME Qty: 30 0RF donepezil 10 mg Tablet 10 mg PO BEDTIME Qty: 30 0RF albuterol sulfate [Ventolin HFA] 90 mcg/actuation Hfa Aerosol Inhaler 1 puff inhalation RQ4H PRN (Reason: wheeze) Qty: 6.7 0RF lamotrigine 100 mg Tablet 100 mg PO BID Qty: 60 0RF quetiapine 50 mg tablet 50 mg PO BID Qty: 60 0RF trazodone 50 mg Tablet 50 mg PO BEDTIME PRN (Reason: Insomnia) Qty: 30 0RF Anbesol (benzocaine) Max Str 20 % Gel 1 appl mucous membrane QID Qty: 9 0RF Protocol: Apply to: Apply to: gums/mouth fluticasone furoate-vilanterol [Breo Ellipta] 100-25 mcg/dose Blister With Device 1 ea inhalation RDAILY Qty: 60 0RF quetiapine [Seroquel] 25 mg tablet 25 mg PO BID Qty: 60 0RF Discontinued atorvastatin 40 mg tablet 40 mg PO DAILY donepezil 10 mg tablet 10 mg PO DAILY fluticasone propion-salmeterol [Advair Diskus] 100-50 mcg/dose blister with device 1 ea inhalation BID albuterol sulfate 90 mcg/actuation HFA aerosol inhaler 90 puff inhalation 6XD PRN (Reason: COPD) lamotrigine 100 mg tablet 100 mg PO BID quetiapine 150 mg tablet extended release 24 hr See Rx Instructions .ROUTE .COMPLEX Rx Instructions: 150 mg orally at 3pm Discharge Orders: Discharge Order (Routine); Ordered 01/26/23 Ordered By: Cathie Forte Diet: Regular diet Activity on Discharge: As tolerated Stand Alone Forms: Patient Portal Discharge page Care Plan Goals: 1. Maintain mood 2. No aggression towards self or others. 3. no signs of psychosis 4. no aggression towards self or others Health Concerns: Follow with dentist for oral ulcers, and follow up with PCP for routine care Plan of Treatment: 1. Take medications as prescribed 2. Go to nearest ED or call 911 in event of emergency. Assessment: Pt is bright, non labile affect. No overt psychosis or delusions. No SI/HI. Sleeping and eating well. No aggression towards self or others.
--- NOTE | 2023-01-26 12:39 | PC.NURSE ---
Patient aware of discharge. Reports readiness for discharge. Education on medications and appointments provided. Patient denies pain, denies S/I, H/I. Pt verbalizes understanding of discharge plan. Pt ambulates with steady gait. Discharged with belongings. Left the unit at 12:10 by Lift.
== END 2023-01-26 12:10 | disposition home or self-care (01) | DRG 753 ==
PROVIDERS: Admitting Provider Psychiatry & Neurology Psychiatry; Visit Provider Psychiatry & Neurology Psychiatry
DX: F31.9 Bipolar disorder, unspecified (principal); F03.90 Unspecified dementia, unspecified severity, without behavioral disturbance, psychotic disturbance, mood disturbance, and anxiety; J44.9 Chronic obstructive pulmonary disease, unspecified; F29 Unspecified psychosis not due to a substance or known physiological condition; F10.11 Alcohol abuse, in remission; E78.5 Hyperlipidemia, unspecified; Z79.51 Long term (current) use of inhaled steroids; Z79.899 Other long term (current) drug therapy
CPT/HCPCS: 36415; 80053; 80061

== ENCOUNTER → 2023-01-18 15:54 | Outpatient (BNV) | payer BC, SELFPAY | PROVIDERS: Admitting Provider Psychiatry & Neurology Psychiatry; Visit Provider Physician Assistant | DX: Z00.00 Encounter for general adult medical examination without abnormal findings (principal) | CPT/HCPCS: 99429 ==

== ENCOUNTER → 2023-01-18 15:54 | Outpatient (BNV) | payer BC, SELFPAY | PROVIDERS: Admitting Provider Psychiatry & Neurology Psychiatry; Visit Provider Psychiatry & Neurology Psychiatry | DX: F03.90 Unspecified dementia, unspecified severity, without behavioral disturbance, psychotic disturbance, mood disturbance, and anxiety (principal); F29 Unspecified psychosis not due to a substance or known physiological condition; F10.90 Alcohol use, unspecified, uncomplicated | CPT/HCPCS: 90792; 99231; 99239 ==